=== PATIENT | male | born 1995 | race Caucasian/White ===

== ENCOUNTER 2017-01-05 20:12 | Emergency (ER) | payer BC, OTHER ==
[2017-01-05 20:17] VITALS: BP 149/78; PULSE 68; RESP 16; TEMP 98.4; O2SAT 98
--- NOTE | 2017-01-05 21:24 | EDPHY ---
H & P Stated Complaint: fishhook in R 4th finger Source: Patient, Family Exam Limitations: No limitations - Personal History Current Tetanus/Diphtheria Vaccine: Yes Current Tetanus Diphtheria and Acellular Pertussis (TDAP): Yes Tetanus Vaccine Date: 2015 - Medical/Surgical History Hx Asthma: No Hx Chronic Respiratory Disease: No Hx Diabetes: No Hx Cardiac Disease: No Hx Renal Disease: No Hx Cirrhosis: No Hx Alcoholism: No Hx HIV/AIDS: No Hx Splenectomy or Spleen Trauma: No Other PMH: denies - Social History Smoking Status: Never smoked HPI/ROS: CHIEF COMPLAINT: [place] in right ring finger HISTORY OF PRESENT ILLNESS: Patient was fishing this evening when he accidentally stuck himself in the right ring finger with fish hook. It is stuck on the volar aspect of the distal phalanx on the right ring finger. Moderately painful if he moves it. Minimal painful at rest. Minimal bleeding. He attempts to remove it at home and it stuck on the naz. No numbness or tingling. No other associated complaints or modifying factors. Tetanus is up- to-date less than 5 years ago PRIOR ORTHO INJURIES: None ESTABLISHED ORTHOPEDIST: None REVIEW OF SYSTEMS: Ten systems reviewed and are negative unless otherwise noted in the HPI EXAMINATION General Appearance: Alert, no distress Cardiovascular: Pulses normal throughout. Symmetric radial pulses. Brisk cap refill Neurological: A&O, sensory symmetric, strength symmetric Skin: Warm and dry, no rash. There is foreign body in the right ring finger, volar over the distal phalanx. This is a fishhook. No bleeding. Minimal pain around it. Extremities: Tender over the area of the fishhook foreign body. Range of motion is fully intact. Psychiatric: Mood and affect normal MDM: 9:20 p.m. Foreign body by fishhook in right ring finger. This has been removed without complication. He remains neurovascular intact postprocedure. Wound has been irrigated will be dressed. Routine wound care as discussed. Follow up with primary care physician. Patient is leaving town tomorrow for [place]. He is to monitor this closely and present to a clinic there here should he develop any redness or signs of infection as discussed. He and his mother comfortable with this plan. PROCEDURE: Digital Block Indication: Foreign body in right ring finger, fishhook Consent: Verbal Location: Right ring finger Anesthesia: Lidocaine 1% plain, 0.25% Marcaine plain, 5mL Description: Base of the right ring finger was prepped with chlorhexidine. After the suture was dry, 5 mL as above were infused at the base of the right finger. Good anesthesia. Tolerated well. Brisk cap refill postprocedure. Complications: None Procedure: Foreign body removal Indication: Fish hook foreign body in right ring finger Consent: Verbal Anesthesia: Digital block Description: After digital block was performed an x-ray was reviewed, the foreign body was visualized. There is no involvement of the bone. The base of the fishhook was removed through the insertion site. The bar was initially caught on the skin but was pulled through with these. Minimal enlargement of the puncture wound. The wound was further irrigated post removal of the foreign body. He remains neurovascular intact post procedure. Bacitracin and dressing were applied. ED Precautions: Worsening pain. Erythema, edema, cyanosis, pallor, paresthesia or anesthesia. SUPERVISION: Patient was evaluated in conjunction with the supervising physician. Please see their note for details. (Homer Esposito) Constitutional: Initial Vital Signs Temperature (C) 36.9 C 01/05/17 20:13 Heart Rate 68 01/05/17 20:13 Respiratory Rate 16 01/05/17 20:13 Blood Pressure 149/78 H 01/05/17 20:13 O2 Sat (%) 98 01/05/17 20:13 O2 Delivery Mode Room Air Allergies/Adverse Reactions: No Known Allergies Allergy (Verified 10/14/15 09:46) Home Medications: Medication Instructions Recorded NK [No Known Home Meds] 01/05/17 Medical Decision Making Other Provider: The patient was evaluated and managed by the Physician Senior Environmental Scientist/ Nurse Practitioner. I discussed the patient's presentation and course with the midlevel provider with them and agree with the evaluation. My co-signature indicates that I have reviewed this chart and I agree with the findings and plan of care as documented. I am the secondary supervising physician. (Judy Franco) Departure - Departure Disposition: Home, Routine, Self-Care Clinical Impression: Fish hook injury of finger Qualifiers: Encounter type: initial encounter Laterality: right Qualified Code(s): S69.91XA - Unspecified injury of right wrist, hand and finger(s), initial encounter Condition: Good Instructions: Soft Tissue Foreign Body (ED) Additional Instructions: Daily wound care as discussed. Apply a waterproof dressing when swimming. Apply a nonocclusive, or standard Band-Aid when not in the water. Follow for signs of infection as discussed should they develop. Referrals: Porter Palma MD [Primary Care Provider] - As per Instructions
== END 2017-01-05 21:40 | disposition home or self-care (01) ==
PROC: 3E0T3BZ Introduction of Anesthetic Agent into Peripheral Nerves and Plexi, Percutaneous Approach (ICD-10-PCS; principal; 2017-01-05)
DX: S69.91XA Unspecified injury of right wrist, hand and finger(s), initial encounter (principal); W45.8XXA Other foreign body or object entering through skin, initial encounter

== ENCOUNTER 2018-07-06 01:47 | Emergency (ER) | payer BC ==
[2018-07-06] MEDS ORDERED: NS 1,000 ML IV ONE (02:49)
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
[2018-07-06 03:09] LABS: PLATELET COUNT 261 10^3/uL (150-400)
[2018-07-06 03:23] LABS: CREATINE KINASE 582 IU/L (0-224)
[2018-07-06 06:07] VITALS: BP 99/52
== END 2018-07-06 05:58 | disposition home or self-care (01) ==
DX: S02.2XXA Fracture of nasal bones, initial encounter for closed fracture (principal); S53.401A Unspecified sprain of right elbow, initial encounter; E86.9 Volume depletion, unspecified; F10.920 Alcohol use, unspecified with intoxication, uncomplicated; N02.8 Recurrent and persistent hematuria with other morphologic changes; Z87.39 Personal history of other diseases of the musculoskeletal system and connective tissue; Y04.0XXA Assault by unarmed brawl or fight, initial encounter
CPT/HCPCS: G0480